=== PATIENT | male | born 1985 | race African-American/Black ===

== ENCOUNTER 2021-07-13 19:24 | Emergency (ER) | payer OTHER ==
[~2021-07-13] VITALS: Ht 193 cm; Wt 98.0 kg
[2021-07-13 20:10] LABS: CLARITY URINE CLEAR (CLEAR); COLOR URINE YELLOW (YELLOW); KETONES URINE 3+ (NEGATIVE); LEUKOCYTE ESTERASE URINE NEGATIVE (NEGATIVE); NITRITE URINE NEGATIVE (NEGATIVE); OCCULT BLOOD URINE TRACE (NEGATIVE); PROTEIN URINE 1+ (NEGATIVE); SPECIFIC GRAVITY URINE 1.028 (1.005-1.030); UROBILINOGEN URINE 0.2 E.U./dL (0.2-1.0)
[2021-07-13 20:21] LABS: *AMPHETAMINES SCREEN URINE NEGATIVE (NEGATIVE)
[2021-07-13 20:22] LABS: *BARBITURATES SCREEN URINE NEGATIVE (NEGATIVE); *BENZODIAZEPINES SCREEN URINE NEGATIVE (NEGATIVE); *COCAINE SCREEN URINE NEGATIVE (NEGATIVE); METHADONE URINE SCREEN NEGATIVE (NEGATIVE); OPIATES URINE SCREEN NEGATIVE (NEGATIVE); PHENCYCLIDINE URINE SCREEN NEGATIVE (NEGATIVE)
[2021-07-13 20:23] LABS: CANNABINOID URINE SCREEN PRESUMTIVE POSITIVE (NEGATIVE)
[2021-07-13 20:47] LABS: BASOPHILS % 0.9 % (0.0-2.0); EOSINOPHILS % 0.8 % (0.0-5.0); LYMPHOCYTES % 19.6 % (20.0-50.0); MEAN CORPUSCULAR HEMOGLOBIN 29.6 pg (28.0-32.0); MEAN PLATELET VOLUME 10.6 fl (7.4-10.4); MONOCYTES % 7.6 % (2.0-8.0); NEUTROPHILS % 71.1 % (40.0-76.0); PLATELET 298 x1000/uL (130-400); RED BLOOD CELL COUNT 5.39 mill/uL (4.7-6.1); RED CELL DISTRIBUTION WIDTH 13.8 % (11.6-14.6)
[2021-07-13 20:49] LABS: CHLORIDE 101 mEq/L (98-107)
[2021-07-13 21:25] LABS: BETA HYDROXYBUTYRATE 1.3 mMol/L (0.0-0.3)
[2021-07-14] MEDS ORDERED: SODIUM CHLORIDE 0.9% 1,000 ML IV ONE (00:30)
[2021-07-14] MEDS ORDERED: ONDANSETRON HCL 4MG/2ML INJ IV ONE (00:30)
[2021-07-14 03:01] VITALS: BP 116/80
== END 2021-07-14 03:28 | disposition short-term general hospital (02) ==
LOC: ER 19:24 → CANBEDREQ 07-14 01:03 → ER 07-14 03:28
DX: R11.2 Nausea with vomiting, unspecified (principal); R10.9 Unspecified abdominal pain; E86.0 Dehydration; F12.10 Cannabis abuse, uncomplicated; E11.9 Type 2 diabetes mellitus without complications
CPT/HCPCS: 36415; 71045; 80053; 80305; 81003; 82010; 82962; 83880; 84145; 84484; 85025; 93005; 96361; 96374; 99285; J2405; J7030

== ENCOUNTER 2022-02-26 04:46 | Inpatient (IN) | payer MEDICAID, OTHER ==
[2022-02-26] VITALS (23 sets, daily range): BP systolic 113–162; BP diastolic 52–94
[~2022-02-26] VITALS: Ht 193 cm; Wt 103.4 kg
[2022-02-26] MEDS ORDERED: SODIUM CHLORIDE 0.9% 1,000 ML IV ONE ×2 (05:15→05:45)
[2022-02-26 05:37] LABS: HEMATOCRIT. 44.6 % (42.0-52.0); HEMOGLOBIN. 12.5 g/dL (14.0-18.0); MEAN CORPUSCULAR HEMOGLOBIN 29.8 pg (28.0-32.0); MEAN CORPUSCULAR VOLUME 106.5 fL (80.0-94.0); PLATELET 339 x1000/uL (130-400); RED BLOOD CELL COUNT 4.19 mill/uL (4.7-6.1); RED CELL DISTRIBUTION WIDTH 15.6 % (11.6-14.6)
[2022-02-26 05:45] LABS: CHLORIDE 100 mEq/L (98-107)
[2022-02-26] MEDS ORDERED: MORPHINE SULFATE 4 MG/ML CPJ (NOT FOR IM USE) IV ONE (05:45)
[2022-02-26 05:54] LABS: ETHANOL BLOOD < 10 mg/dL
[2022-02-26] MEDS ORDERED: INSULIN REGULAR (DRIP) 100 UNITS in SODIUM CHLORIDE 0.9% 99 ML IV ONE (06:00)
[2022-02-26] MEDS ORDERED: INSULIN REGULAR 100U/100ML PMX 100 ML IV PRN (06:15)
[2022-02-26 06:40] LABS: BG BASE EXCESS -14.2 mmol/L (-2.0-2.0); BG CARBOXYHEMOGLOBIN 0.4 % (0.5-1.5); BG DEOXYHEMOGLOBIN 2.7 % (0.0-5.0); BG FRACTION INSPIRED OXYGEN 21; BG HCO3 ACT 10.8 mmol/L (22.0-26.0); BG METHEMOGLOBIN 0.3 % (0.0-1.5); BG OXYGEN SATURATION 97.3 % (92.0-98.5); BG OXYHEMOGLOBIN 96.6 % (94.0-97.0); BG PCO2 24.1 mmHg (35.0-45.0); BG PH 7.271 (7.350-7.450); BG PO2 101.9 mmHg (75.0-100.0); BG SAMPLE SITE RIGHT RADIAL; BG TOTAL HEMOGLOBIN 12.9 g/dL (12.0-18.0); BG VENT MODE ROOM AIR
[2022-02-26 07:22] LABS: CLARITY URINE CLEAR (CLEAR); COLOR URINE YELLOW (YELLOW); KETONES URINE 3+ (NEGATIVE); LEUKOCYTE ESTERASE URINE NEGATIVE (NEGATIVE); NITRITE URINE NEGATIVE (NEGATIVE); OCCULT BLOOD URINE NEGATIVE (NEGATIVE); PROTEIN URINE TRACE (NEGATIVE); SPECIFIC GRAVITY URINE 1.025 (1.005-1.030); UROBILINOGEN URINE 0.2 E.U./dL (0.2-1.0)
[2022-02-26] MEDS ORDERED: ONDANSETRON HCL 4MG/2ML INJ IV ONE (07:30)
[2022-02-26 07:41] LABS: *AMPHETAMINES SCREEN URINE NEGATIVE (NEGATIVE); *BARBITURATES SCREEN URINE NEGATIVE (NEGATIVE); *BENZODIAZEPINES SCREEN URINE NEGATIVE (NEGATIVE); *COCAINE SCREEN URINE NEGATIVE (NEGATIVE); CANNABINOID URINE SCREEN NEGATIVE (NEGATIVE); METHADONE URINE SCREEN NEGATIVE (NEGATIVE); OPIATES URINE SCREEN NEGATIVE (NEGATIVE); PHENCYCLIDINE URINE SCREEN NEGATIVE (NEGATIVE)
[2022-02-26 08:24] LABS: PLATELET ESTIMATE NORMAL
[2022-02-26] MEDS ORDERED: ONDANSETRON HCL 4MG/2ML INJ IV PRN (11:30)
[2022-02-26] MEDS ORDERED: ACETAMINOPHEN 325MG TABLET PO PRN (11:30)
[2022-02-26] MEDS ORDERED: PIPERACILLIN/TAZ 3.375G PREMIX 50 ML IV SCH (11:30)
[2022-02-26] MEDS ORDERED: SODIUM BICARBONATE 100 MEQ in SODIUM CHLORIDE 0.45% 1,000 ML IV SCH (12:00)
[2022-02-26] MEDS: PANTOPRAZOLE SODIUM 40 MG/VIAL IV SCH (12:01)
[2022-02-26] MEDS: ENOXAPARIN 40MG/0.4ML SYR SUBCUT SCH (12:02)
[2022-02-26] MEDS ORDERED: DEXTROSE 50% WATER 50ML SYRINGE IV PRN (14:15)
[2022-02-26] MEDS ORDERED: INSULIN REGULAR (DRIP) 100 UNITS in SODIUM CHLORIDE 0.9% 99 ML IV PRN (14:15)
[2022-02-26] MEDS: INSULIN REGULAR 100U/100ML PMX 100 ML IV SCH (14:38)
[2022-02-26] MEDS: BLOOD SUGAR DIAGNOSTIC STRIP TEST SCH ×9 (15:00→23:15)
[2022-02-26] MEDS ORDERED: ZOLPIDEM TARTRATE 5MG TABLET PO PRN (15:00)
[2022-02-26 15:32] LABS: CHLORIDE 107 mEq/L (98-107)
[2022-02-26 15:38] LABS: PHOSPHORUS 3.9 mg/dL (2.5-4.9)
[2022-02-26] MEDS: PIPERACILLIN/TAZOBACTAM 3.375G in DEXT 5% WATER 50ML IV SCH (18:07)
[2022-02-26 20:53] LABS: CHLORIDE 112 mEq/L (98-107)
[2022-02-26 20:57] LABS: PHOSPHORUS 2.8 mg/dL (2.5-4.9)
[2022-02-26] MEDS: DEXT 5%/0.9% NACL 1,000 ML IV SCH (21:19)
[2022-02-27] VITALS (46 sets, daily range): BP systolic 117–181; BP diastolic 52–101
[2022-02-27] MEDS: BLOOD SUGAR DIAGNOSTIC STRIP TEST SCH ×11 (00:08→21:27)
[2022-02-27 02:33] LABS: BASOPHILS % 0.2 % (0.0-2.0); EOSINOPHILS % 0.1 % (0.0-5.0); HEMATOCRIT. 35.6 % (42.0-52.0); HEMOGLOBIN. 11.4 g/dL (14.0-18.0); MEAN CORPUSCULAR HEMOGLOBIN 29.6 pg (28.0-32.0); MEAN CORPUSCULAR VOLUME 92.2 fL (80.0-94.0); MONOCYTES % 5.6 % (2.0-8.0); NEUTROPHILS % 82.1 % (40.0-76.0); PLATELET 276 x1000/uL (130-400); RED BLOOD CELL COUNT 3.86 mill/uL (4.7-6.1); RED CELL DISTRIBUTION WIDTH 14.2 % (11.6-14.6)
[2022-02-27 02:37] LABS: CHLORIDE 114 mEq/L (98-107)
[2022-02-27 02:42] LABS: PHOSPHORUS 2.2 mg/dL (2.5-4.9)
[2022-02-27] MEDS: DEXT 5%/0.9% NACL 1,000 ML IV SCH ×2 (04:17→12:29)
[2022-02-27 06:09] LABS: CHLORIDE 113 mEq/L (98-107)
[2022-02-27 06:23] LABS: PHOSPHORUS 2.7 mg/dL (2.5-4.9)
[2022-02-27] MEDS: INSULIN REGULAR 100U/100ML PMX 100 ML IV SCH (07:00)
[2022-02-27] MEDS: PIPERACILLIN/TAZOBACTAM 3.375G in DEXT 5% WATER 50ML IV SCH ×3 (08:15→21:27)
[2022-02-27] MEDS: PANTOPRAZOLE SODIUM 40 MG/VIAL IV SCH (08:15)
[2022-02-27 08:19] LABS: BG BASE EXCESS -3.1 mmol/L (-2.0-2.0); BG CARBOXYHEMOGLOBIN 1.1 % (0.5-1.5); BG DEOXYHEMOGLOBIN 2.3 % (0.0-5.0); BG FRACTION INSPIRED OXYGEN 21; BG HCO3 ACT 21.4 mmol/L (22.0-26.0); BG METHEMOGLOBIN 0.2 % (0.0-1.5); BG OXYGEN SATURATION 97.7 % (92.0-98.5); BG OXYHEMOGLOBIN 96.4 % (94.0-97.0); BG PCO2 36.2 mmHg (35.0-45.0); BG PH 7.389 (7.350-7.450); BG PO2 96.3 mmHg (75.0-100.0); BG SAMPLE SITE RIGHT RADIAL; BG TOTAL HEMOGLOBIN 11.6 g/dL (12.0-18.0); BG VENT MODE ROOM AIR
[2022-02-27] MEDS ORDERED: DEXTROSE 50% WATER 50ML SYRINGE IV PRN (11:45)
[2022-02-27] MEDS: ENOXAPARIN 40MG/0.4ML SYR SUBCUT SCH (12:09)
[2022-02-27] MEDS: INSULIN GLARGINE 100 UNITS/ML SUBCUT SCH (12:10)
[2022-02-27] MEDS: INSULIN LISPRO 100 UNITS/ML SUBCUT SCH ×3 (12:37→21:32)
[2022-02-27 13:38] LABS: CHLORIDE 115 mEq/L (98-107)
[2022-02-27 13:42] LABS: PHOSPHORUS 2.1 mg/dL (2.5-4.9)
[2022-02-27] MEDS ORDERED: METF-415 PO (17:55)
[2022-02-27] MEDS ORDERED: LISI2.5T47 PO (17:55)
[2022-02-27] MEDS ORDERED: GABA-533 PO (17:55)
[2022-02-27] MEDS ORDERED: METO-293 PO (17:55)
[2022-02-27] MEDS ORDERED: METO25TA6 PO (17:55)
[2022-02-27] MEDS ORDERED: FERR325T30 PO (17:55)
[2022-02-27] MEDS ORDERED: INSU100V37 SQ (17:55)
[2022-02-27] MEDS ORDERED: FURO20TA4 PO (17:55)
[2022-02-27] MEDS ORDERED: FAMO20TA8 PO (17:55)
[2022-02-27] MEDS ORDERED: INSU100I24 SQ (17:55)
[2022-02-27] MEDS ORDERED: HYDRALAZINE 20MG/ML VIAL IV PRN (18:00)
[2022-02-27] MEDS: LISINOPRIL 10MG TABLET PO SCH (18:03)
[2022-02-27 19:33] LABS: CHLORIDE 112 mEq/L (98-107)
[2022-02-27 19:43] LABS: PHOSPHORUS 2.2 mg/dL (2.5-4.9)
[2022-02-27] MEDS ORDERED: POTASSIUM CHLORIDE 20MEQ TABLET SR PO NR (20:45)
[2022-02-27] MEDS: SODIUM CHLORIDE 0.9% 1,000 ML IV SCH (21:31)
[2022-02-28] VITALS (21 sets, daily range): BP systolic 126–173; BP diastolic 48–107
[2022-02-28] MEDS: PIPERACILLIN/TAZOBACTAM 3.375G in DEXT 5% WATER 50ML IV SCH ×2 (05:11→13:52)
[2022-02-28] MEDS: BLOOD SUGAR DIAGNOSTIC STRIP TEST SCH ×3 (07:36→17:20)
[2022-02-28] MEDS: LISINOPRIL 10MG TABLET PO SCH (09:14)
[2022-02-28] MEDS: PANTOPRAZOLE SODIUM 40 MG/VIAL IV SCH (09:18)
[2022-02-28] MEDS: INSULIN LISPRO 100 UNITS/ML SUBCUT SCH ×3 (09:33→18:55)
[2022-02-28] MEDS: INSULIN GLARGINE 100 UNITS/ML SUBCUT SCH (09:43)
[2022-02-28] MEDS ORDERED: HYDRALAZINE 10 MG in SODIUM CHLORIDE 0.9% 49.5 ML IV PRN (11:45)
[2022-02-28 13:25] LABS: BASOPHILS % 1.1 % (0.0-2.0); EOSINOPHILS % 0.7 % (0.0-5.0); HEMOGLOBIN. 11.1 g/dL (14.0-18.0); LYMPHOCYTES % 22.6 % (20.0-50.0); MEAN CORPUSCULAR HEMOGLOBIN 30.1 pg (28.0-32.0); MEAN PLATELET VOLUME 9.6 fl (7.4-10.4); MONOCYTES % 5.5 % (2.0-8.0); NEUTROPHILS % 70.1 % (40.0-76.0); PLATELET 240 x1000/uL (130-400); RED BLOOD CELL COUNT 3.69 mill/uL (4.7-6.1); RED CELL DISTRIBUTION WIDTH 14.2 % (11.6-14.6)
[2022-02-28 13:35] LABS: CHLORIDE 105 mEq/L (98-107)
[2022-02-28] MEDS: SODIUM CHLORIDE 0.9% 1,000 ML IV SCH (13:52)
[2022-02-28] MEDS: ENOXAPARIN 40MG/0.4ML SYR SUBCUT SCH (13:53)
[2022-03-01] MEDS ORDERED: ENOXAPARIN 30MG/0.3ML SYR SUBCUT SCH (09:00)
== END 2022-02-28 19:00 | disposition home or self-care (01) | DRG 420 ==
LOC: ER 04:46 → CVICU 08:17 → EDBEDREQTM 08:19 → EDBEDREQ 08:19 → ENRESERV 11:18 → 6EST 02-28 09:52
PROVIDERS: ADMIT Internal Medicine; ATTEND Internal Medicine
DX: E10.10 Type 1 diabetes mellitus with ketoacidosis without coma (principal); R65.10 Systemic inflammatory response syndrome (SIRS) of non-infectious origin without acute organ dysfunction; D72.829 Elevated white blood cell count, unspecified
CPT/HCPCS: 36415; 36600; 80048; 80053; 80305; 80320; 81003; 82010; 82375; 82805; 82962; 83036; 83735; 84100; 85025; 93970; 99291; C9113; J1650; J1815; J2270; J2405; J2543; J3490; J7030; J7042; J7050; J7060; G0480